=== PATIENT | female | born 1955 | race Asian ===

== ENCOUNTER 2021-12-05 08:00 | Outpatient (CLI) | payer MEDICAID, OTHER ==
[2021-12-05 12:44] LABS: BASOPHILS % (AUTO) 0.4 %; EOSINOPHILS # (AUTO) 0.1 10^3/uL (0.0-0.7); HCT - HEMATOCRIT 40.6 % (37.0-47.0); HGB - HEMOGLOBIN 12.9 g/dL (12.0-16.0); LYMPHOCYTES # (AUTO) 2.2 10^3/uL (1.5-3.5); LYMPHOCYTES % (AUTO) 39.9 %; MEAN CORPUSCULAR HEMOGLOBIN 27.8 pg (27.0-31.0); MEAN CORPUSCULAR HGB CONC 31.8 g/dL (32.0-36.0); MEAN CORPUSCULAR VOLUME 87.5 fL (81.0-99.0); MEAN PLATELET VOLUME 9.5 fL (7.9-10.8); MONOCYTES # (AUTO) 0.4 10^3/uL (0.0-1.0); MONOCYTES % (AUTO) 6.3 %; NEUTROPHILS # (AUTO) 2.9 10^3/uL (1.5-6.6); NEUTROPHILS % (AUTO) 51.2 %; PLT - PLATELET COUNT 426 10^3/uL (130-450); RED BLOOD COUNT 4.64 10^6/uL (4.20-5.40); RED CELL DISTRIBUTION WIDTH 13.9 % (12.0-15.0); WHITE BLOOD COUNT 5.6 x10^3/uL (4.8-10.8)
[2021-12-05 12:50] LABS: BILIRUBIN,URINE NEGATIVE (NEGATIVE); GLUCOSE, URINE (UA) NEGATIVE (NEGATIVE); KETONES,URINE (UA) NEGATIVE (NEGATIVE); LEUKOCYTE ESTERASE, URINE NEGATIVE (NEGATIVE); NITRITE,URINE NEGATIVE (NEGATIVE); OCCULT BLOOD,URINE NEGATIVE (NEGATIVE); PH,URINE 5.5 PH (5.0-7.5); PROTEIN,URINE NEGATIVE (NEGATIVE); UROBILINOGEN,URINE 0.2 (NORMAL) E.U./dL (NORMAL)
[2021-12-05 13:09] LABS: BACTERIA,URINE None Seen /HPF (None Seen); CLARITY,URINE CLEAR (CLEAR); RBC,URINE None Seen /HPF (0-5); SQUAMOUS EPITHELIAL CELL,UR RARE Squamous (<= Few); WBC,URINE 0-3 /HPF (0-5)
[2021-12-05 13:11] LABS: ALBUMIN 3.9 g/dL (3.2-5.5); ALBUMIN/GLOBULIN RATIO 1.2 (1.0-2.2); ALKALINE PHOSPHATASE 72 IU/L (42-121); ALT ALANINE AMINOTRANSFERASE 29 IU/L (10-60); AST ASPARTATE AMINOTRANSFERASE 30 IU/L (10-42); BUN - BLOOD UREA NITROGEN 9 mg/dL (6-20); CALCIUM 9.3 mg/dL (8.5-10.3); CARBON DIOXIDE - CO2 28 mmol/L (21-32); CHLORIDE 100 mmol/L (101-111); CHOLESTEROL 266 mg/dL; CREATININE 0.6 mg/dL (0.4-1.0); GFR - MDRD 101 (>89); GLUCOSE 94 mg/dL (70-100); HDL CHOLESTEROL 66 mg/dL; LDL CHOLESTEROL,CALCULATED 182 mg/dL; POTASSIUM 4.1 mmol/L (3.5-5.0); SODIUM 135 mmol/L (135-145); TOTAL PROTEIN 7.2 g/dL (6.7-8.2); TRIGLYCERIDES 91 mg/dL; VLDL CHOLESTEROL 18 mg/dL
[2021-12-05 13:12] LABS: LDL/HDL RATIO 2.8 (<4.4); THYROID STIMULATING HORMONE 1.52 uIU/mL (0.34-5.60)
[2021-12-05 13:13] LABS: FREE T4 (FREE THYROXINE) 0.93 ng/dL (0.58-1.64)
[2021-12-06 17:20] LABS: ESTIMATED AVERAGE GLUCOSE 128 mg/dL (70-100); HEMOGLOBIN A1c% 6.1 % (4.27-6.07)
== END 2021-12-05 23:59 | disposition home or self-care (01) ==
LOC: LAB.WCP 08:00
PROVIDERS: ATTEND Nurse Practitioner
DX: E78.5 Hyperlipidemia, unspecified (principal); R53.83 Other fatigue; R26.81 Unsteadiness on feet; R73.9 Hyperglycemia, unspecified; R42 Dizziness and giddiness
CPT/HCPCS: 36415; 80053; 80061; 81001; 82607; 83036; 83721; 84439; 84443; 85025; 87086

== ENCOUNTER 2021-12-13 00:14 | Outpatient (CLI) | payer OTHER | END 2021-12-13 00:15 | disposition critical access hospital (66) | LOC: EMS 00:14 | DX: R10.31 Right lower quadrant pain (principal); R11.2 Nausea with vomiting, unspecified; R42 Dizziness and giddiness; R00.0 Tachycardia, unspecified | CPT/HCPCS: A0425; A0427 ==

== ENCOUNTER 2021-12-13 00:31 | Inpatient (IN) | payer OTHER ==
--- NOTE | 2021-12-13 00:54 | ED Physician Documentation ---
PD HPI ABD PAIN - Stated complaint Stated Complaint: RLQ PAIN - Chief complaint Chief Complaint: Abd Pain - History obtained from History obtained from: Patient - History of Present Illness Timing - onset: How many days ago (2) Timing - duration: Days Timing - details: Gradual onset, Constant Pain level now: 8 Quality: Pain Location: RLQ Radiation: Other (radiates to the entire abdomen (from RLQ)) Improved by: Laying still Worsened by: Moving, Palpation Associated symptoms: Nausea, Vomiting. No: Fever, Diarrhea, Constipation Similar symptoms before: Has not had sx before Recently seen: Not recently seen Review of Systems Constitutional: denies: Fever, Chills, Sweats Eyes: reports: Reviewed and negative Ears: reports: Reviewed and negative Nose: reports: Reviewed and negative Throat: reports: Reviewed and negative Cardiac: reports: Reviewed and negative Respiratory: reports: Reviewed and negative GI: reports: Abdominal Pain, Nausea, Vomiting. denies: Abdominal Swelling, Constipation, Diarrhea : denies: Dysuria, Frequency Skin: reports: Reviewed and negative Musculoskeletal: reports: Reviewed and negative Neurologic: reports: Reviewed and negative PD PAST MEDICAL HISTORY - Past Medical History Past Medical History: No - Past Surgical History Past Surgical History: No - Present Medications Home Medications: Ambulatory Orders Medication Instructions Recorded Confirmed Cholecalciferol (Vitamin D3) 5,000 unit PO DAILY 11/06/16 11/06/16 [Vitamin D3] Multivitamin [Multivitamins] 1 each PO DAILY 11/06/16 11/06/16 - Allergies Allergies/Adverse Reactions: Allergies Allergy/AdvReac Type Severity Reaction Status Date / Time No Known Drug Allergies Allergy Verified 11/05/16 14:22 - Living Situation Living Arrangement: reports: At home - Social History Does the pt smoke?: No PD ED PE NORMAL - Vitals Vital signs reviewed: Yes - General General: Alert and oriented X 3, No acute distress (NAD at rest but obvious painful discomfort with abominal exam), Well developed/nourished - HEENT HEENT: Moist mucous membranes - Neck Neck: Supple, no meningeal sign - Respiratory Respiratory: No respiratory distress, Clear bilaterally - Abdomen Abdomen: Soft, Non distended - Derm Derm: Normal color, Warm and dry - Extremities Extremities: No edema PD ED PE EXPANDED - Cardiac Cardiac: Regular Rate, Tachy, Murmur Present (2/6 CHET left second ICS) - Abdomen Abdomen: Tender to palpation (greatest in RLQ but mild TTP other quadrants. Strong rebound tenderness diffusely), Rebound, Other (positive Rovsing's sign) Results - Vitals Vitals: Vital Signs - 24 hr 12/13/21 12/13/21 12/13/21 00:51 01:39 02:35 Temperature 36.9 C Heart Rate 138 H 132 H 138 H Respiratory 18 18 16 Rate Blood Pressure 147/80 H 151/73 H 144/71 H O2 Saturation 97 94 95 12/13/21 12/13/21 12/13/21 03:10 03:53 04:06 Temperature 37.9 C Heart Rate 141 H 141 H Respiratory 16 15 Rate Blood Pressure 141/85 H 138/88 H O2 Saturation 100 98 12/13/21 12/13/21 12/13/21 05:21 05:31 05:59 Temperature 37.6 C Heart Rate 145 H 129 H Respiratory 16 15 14 Rate Blood Pressure 122/79 O2 Saturation 94 96 12/13/21 12/13/21 12/13/21 06:01 06:28 06:30 Temperature Heart Rate 130 H Respiratory 16 Rate Blood Pressure 133/74 H 136/80 H O2 Saturation 97 Oxygen O2 Source Nasal cannula Oxygen Flow Rate 2 - EKG (time done) No standard instances Rate: Rate (enter#) (145), Tachy Rhythm: Sinus tachycardia [place]: Normal Intervals: Normal [place] QRS: Normal Ischemia: Normal ST segments - Labs Labs: Laboratory Tests 12/13/21 12/13/21 12/13/21 01:25 01:29 01:29 WBC 20.5 H RBC 4.73 Hgb 13.2 Hct 39.8 MCV 84.1 MCH 27.9 MCHC 33.2 RDW 13.7 Plt Count 374 MPV 8.5 Neut # (Auto) Not Reportable Lymph # (Auto) Not Reportable [place] # (Auto) Not Reportable Eos # (Auto) Not Reportable Baso # (Auto) Not Reportable Absolute Nucleated RBC Not Reportable Total Counted 100 Band Neuts % (Manual) 13 H Abnorm Lymph % (Manual) 0 Nucleated RBC % Not Reportable Neutrophils # (Manual) 17.4 H Lymphocytes # (Manual) 2.1 Monocytes # (Manual) 1.0 Eosinophils # (Manual) 0.0 Basophils # (Manual) 0.0 Differential Comment MANUAL DIFFERENTIAL Platelet Estimate NORMAL (130-450,000) RBC Morph Micro Appear NORMAL APPEARANCE Sodium 126 L Potassium 3.8 Chloride 90 L Carbon Dioxide 25 Anion Gap 11.0 BUN 6 Creatinine 0.6 Estimated GFR (MDRD) 101 Glucose 113 H Calcium 8.8 Total Bilirubin 2.3 H AST 25 ALT 35 Alkaline Phosphatase 100 Total Protein 7.5 Albumin 3.6 Globulin 3.9 Albumin/Globulin Ratio 0.9 L Lipase 18 L Urine Color YELLOW Urine Clarity CLEAR Urine pH 6.0 Ur Specific [place] 1.015 Urine Protein NEGATIVE Urine Glucose (UA) NEGATIVE Urine Ketones >=80 H Urine Occult Blood TRACE-INTA Urine Nitrite NEGATIVE Urine Bilirubin NEGATIVE Urine Urobilinogen 1 (NORMAL) Ur Leukocyte Esterase NEGATIVE Ur Microscopic Review NOT INDICATED Urine Culture Comments NOT INDICATED Nasal Adenovirus (PCR) Nasal B. parapertussis DNA (PCR) Nasal Coronavir 229E PCR Nasal Coronavir HKU1 PCR Nasal Coronavir NL63 PCR Nasal Coronavir OC43 PCR Nasal Enterovir/Rhinovir PCR Nasal Influenza B PCR Nasal Influenza A PCR Nasal Parainfluen 1 PCR Nasal Parainfluen 2 PCR Nasal Parainfluen 3 PCR Nasal Parainfluen 4 PCR Nasal RSV (PCR) Nasal B.pertussis DNA PCR Nasal C.pneumoniae (PCR) [place] Human Metapneumo PCR Nasal M.pneumoniae (PCR) Nasal SARS-CoV-2 (PCR) 12/13/21 03:40 WBC RBC Hgb Hct MCV MCH MCHC RDW Plt Count MPV Neut # (Auto) Lymph # (Auto) [place] # (Auto) Eos # (Auto) Baso # (Auto) Absolute Nucleated RBC Total Counted Band Neuts % (Manual) Abnorm Lymph % (Manual) Nucleated RBC % Neutrophils # (Manual) Lymphocytes # (Manual) Monocytes # (Manual) Eosinophils # (Manual) Basophils # (Manual) Differential Comment Platelet Estimate RBC Morph Micro Appear Sodium Potassium Chloride Carbon Dioxide Anion Gap BUN Creatinine Estimated GFR (MDRD) Glucose Calcium Total Bilirubin AST ALT Alkaline Phosphatase Total Protein Albumin Globulin Albumin/Globulin Ratio Lipase Urine Color Urine Clarity Urine pH Ur Specific [place] Urine Protein Urine Glucose (UA) Urine Ketones Urine Occult Blood Urine Nitrite Urine Bilirubin Urine Urobilinogen Ur Leukocyte Esterase Ur Microscopic Review Urine Culture Comments Nasal Adenovirus (PCR) NOT DETECTED Nasal B. parapertussis DNA (PCR) NOT DETECTED Nasal Coronavir 229E PCR NOT DETECTED Nasal Coronavir HKU1 PCR NOT DETECTED Nasal Coronavir NL63 PCR NOT DETECTED Nasal Coronavir OC43 PCR NOT DETECTED Nasal Enterovir/Rhinovir PCR NOT DETECTED Nasal Influenza B PCR NOT DETECTED Nasal Influenza A PCR NOT DETECTED Nasal Parainfluen 1 PCR NOT DETECTED Nasal Parainfluen 2 PCR NOT DETECTED Nasal Parainfluen 3 PCR NOT DETECTED Nasal Parainfluen 4 PCR NOT DETECTED Nasal RSV (PCR) NOT DETECTED Nasal B.pertussis DNA PCR NOT DETECTED Nasal C.pneumoniae (PCR) NOT DETECTED [place] Human Metapneumo PCR NOT DETECTED Nasal M.pneumoniae (PCR) NOT DETECTED Nasal SARS-CoV-2 (PCR) NOT DETECTED - Rads (name of study) CT A/P with IV contrast Radiology: Prelim report reviewed, See rad report PD MEDICAL DECISION MAKING - ED course Complexity details: reviewed results, re-evaluated patient, considered differential, d/w patient ED course: H+P suggestive of appendicits with rebound tenderness, CT demonstrates "perforated acute appendicitis with extensive inflammation at the base of the cecum. no abscess" (per radiologist's interpretation). D/W Dr. Mejia, will take patient to OR in AM. Patient remained stable during ED stay although significant tachycardia throughout, even with IV fluids and good pain control. Tmax 100.2 which improved to 99.6 with [place] acetaminophen. Departure - Departure Disposition: ED Transfer to [facility] Clinical Impression: Appendicitis Condition: Stable Discharge Date/Time: 12/13/21 08:24
[2021-12-13] MEDS ORDERED: HYDROmorphone 1 MG/ML CARPUJECT IVP STA ×3 (01:15→03:35)
[2021-12-13] MEDS ORDERED: ONDANSETRON 4 MG/2 ML VIAL IVP STA (01:15)
[2021-12-13] MEDS ORDERED: SODIUM CHLORIDE 0.9% 1,000 ML IV STA ×3 (01:15→03:19)
[2021-12-13] MEDS ORDERED: iohexoL-300 100 ML VIAL ONE (01:30)
[2021-12-13 01:35] LABS: BASOPHILS % (AUTO) 0.3 %; EOSINOPHILS % (AUTO) 0.2 %; HCT - HEMATOCRIT 39.8 % (37.0-47.0); HGB - HEMOGLOBIN 13.2 g/dL (12.0-16.0); LYMPHOCYTES % (AUTO) 5.1 %; MEAN CORPUSCULAR HEMOGLOBIN 27.9 pg (27.0-31.0); MEAN CORPUSCULAR HGB CONC 33.2 g/dL (32.0-36.0); MEAN CORPUSCULAR VOLUME 84.1 fL (81.0-99.0); MEAN PLATELET VOLUME 8.5 fL (7.9-10.8); MONOCYTES % (AUTO) 6.1 %; NEUTROPHILS % (AUTO) 87.4 %; PLT - PLATELET COUNT 374 10^3/uL (130-450); RED BLOOD COUNT 4.73 10^6/uL (4.20-5.40); RED CELL DISTRIBUTION WIDTH 13.7 % (12.0-15.0); WHITE BLOOD COUNT 20.5 x10^3/uL (4.8-10.8)
[2021-12-13 01:37] LABS: ABNORMAL LYMPHS % (MANUAL) 0 %
[2021-12-13 01:41] LABS: BILIRUBIN,URINE NEGATIVE (NEGATIVE); GLUCOSE, URINE (UA) NEGATIVE (NEGATIVE); KETONES,URINE (UA) >=80 mg/dL (NEGATIVE); LEUKOCYTE ESTERASE, URINE NEGATIVE (NEGATIVE); NITRITE,URINE NEGATIVE (NEGATIVE); OCCULT BLOOD,URINE TRACE-INTA (NEGATIVE); PROTEIN,URINE NEGATIVE (NEGATIVE); UROBILINOGEN,URINE 1 (NORMAL) E.U./dL (NORMAL)
[2021-12-13 01:44] LABS: CLARITY,URINE CLEAR (CLEAR)
[2021-12-13 01:46] LABS: ALBUMIN 3.6 g/dL (3.2-5.5); ALBUMIN/GLOBULIN RATIO 0.9 (1.0-2.2); BILIRUBIN,TOTAL 2.3 mg/dL (0.2-1.0); CALCIUM 8.8 mg/dL (8.5-10.3); CREATININE 0.6 mg/dL (0.4-1.0); POTASSIUM 3.8 mmol/L (3.5-5.0); TOTAL PROTEIN 7.5 g/dL (6.7-8.2)
[2021-12-13] MEDS ORDERED: iohexoL-300 100 ML VIAL IVP ONE (02:19)
[2021-12-13 02:23] LABS: BAND NEUTROPHILS % (MANUAL) 13 %; DIFFERENTIAL COMMENT MANUAL DIFFERENTIAL; LYMPHOCYTES # (MANUAL) 2.1 10^3/uL (1.5-3.5); LYMPHOCYTES % (MANUAL) 10 %; NEUTROPHILS # (MANUAL) 17.4 10^3/uL (1.5-6.6); PLATELET ESTIMATE, MANUAL NORMAL (130-450,000) (NORMAL); RBC MORPHOLOGY (MULTIPLE) NORMAL APPEARANCE (NORMAL)
[2021-12-13] MEDS ORDERED: PIPERACILLIN/TAZOBACTAM 4.5 GM in SODIUM CHLORIDE 0.9% MINIBAG 100 ML IV STA (02:32)
[2021-12-13] MEDS ORDERED: ACETAMINOPHEN 650 MG SUPP PR STA (03:19)
[2021-12-13 04:56] LABS: B. PARAPERTUSSIS- RESP PCR PAN NOT DETECTED; B. PERTUSSIS- RESP PCR PANEL NOT DETECTED; C. PNEUMONIAE- RESP PCR PANEL NOT DETECTED; CORONAVIRUS 229E-RESP PCR NOT DETECTED; CORONAVIRUS HKU1-RESP PCR NOT DETECTED; CORONAVIRUS NL63-RESP PCR NOT DETECTED; CORONAVIRUS OC43-RESP PCR NOT DETECTED; HUMAN METAPNEUMOVIRUS NOT DETECTED; INFLUENZA A- RESP PCR PANEL NOT DETECTED; INFLUENZA B - RESP PCR PANEL NOT DETECTED; M. PNEUMONIAE- RESP PCR PANEL NOT DETECTED; PARAINFLUENZA VIRUS 1 NOT DETECTED; PARAINFLUENZA VIRUS 2 NOT DETECTED; PARAINFLUENZA VIRUS 3 NOT DETECTED; PARAINFLUENZA VIRUS 4 NOT DETECTED; RHINOVIRUS/ENTEROVIRUS NOT DETECTED; RSV- RESP PCR PANEL NOT DETECTED; SARS-CoV-2 -RESP PCR PANEL NOT DETECTED
[2021-12-13] MEDS ORDERED: BUPIVACAINE 0.25% PF 30 ML VIAL ONE (07:43)
[2021-12-13] MEDS ORDERED: LIDOCAINE 2%-EPI 1:100000 20 ML MDV ONE (07:43)
--- NOTE | 2021-12-13 08:00 | ANESTHESIA ---
Pre-Anesthesia VS, & Labs - Diagnosis ruptured appendix - Procedure Lap appy Vital Signs: Temp Pulse Resp BP Pulse Ox 37.6 C 130 H 16 136/80 H 97 12/13/21 05:21 12/13/21 06:30 12/13/21 06:28 12/13/21 06:30 12/13/21 06:30 Height: 5 ft 6 in Weight (kg): 74.344 kg Body Mass Index: 26.4 BMI Classification: Overweight - NPO >8 hours - Is Patient ?: No - Lab Results Current Lab Results: Laboratory Tests 12/13/21 01:29: Sodium 126 L, Potassium 3.8, Chloride 90 L, Carbon Dioxide 25, Anion Gap 11.0, BUN 6, Creatinine 0.6, Estimated GFR (MDRD) 101, Glucose 113 H, Calcium 8.8, Total Bilirubin 2.3 H, AST 25, ALT 35, Alkaline Phosphatase 100, Total Protein 7.5, Albumin 3.6, Globulin 3.9, Albumin/Globulin Ratio 0.9 L, Lipase 18 L 12/13/21 01:29: WBC 20.5 H, RBC 4.73, Hgb 13.2, Hct 39.8, MCV 84.1, MCH 27.9, MCHC 33.2, RDW 13.7, Plt Count 374, MPV 8.5, Neut # (Auto) Not Reportable, Lymph # (Auto) Not Reportable, [place] # (Auto) Not Reportable, Eos # (Auto) Not Reportable, Baso # (Auto) Not Reportable, Absolute Nucleated RBC Not Reportable, Total Counted 100, Band Neuts % (Manual) 13 H, Abnorm Lymph % (Manual) 0, Nucleated RBC % Not Reportable, Neutrophils # (Manual) 17.4 H, Lymphocytes # (Manual) 2.1, Monocytes # (Manual) 1.0, Eosinophils # (Manual) 0.0, Basophils # (Manual) 0.0, Differential Comment MANUAL DIFFERENTIAL, Platelet Estimate NORMAL (130-450,000), RBC Morph Micro Appear NORMAL APPEARANCE Lab results reviewed: Yes Fish Bones: 12/13/21 01:29 12/13/21 01:29 Home Medications and Allergies Active Medications Sodium Chloride (Normal Saline 0.9%) 1,000 mls @ 150 mls/hr IV .Q6H40M STA Stop: 12/13/21 09:09 Last Admin: 12/13/21 02:43 Dose: 150 mls/hr Cholecalciferol (Vitamin D3) [Vitamin D3] 5,000 unit PO DAILY 11/06/16 Multivitamin [Multivitamins] 1 each PO DAILY 11/06/16 Allergies/Adverse Reactions: Allergies Allergy/AdvReac Type Severity Reaction Status Date / Time No Known Drug Allergies Allergy Verified 11/05/16 14:22 Anes History & Medical History - Anesthetic History Anesthesia Complications: reports: No previous complications Family history of Anesthesia Complications: Denies Family history of Malignant Hyperthermia: Denies - Medical History Cardiovascular: reports: None Pulmonary: reports: None Gastrointestinal: reports: None Urinary: reports: None Neuro: reports: None Musculoskeletal: reports: None Endocrine/Autoimmune: reports: None Blood Disorders: reports: None Skin: reports: None Smoking Status: Never smoker - Surgical History Eyes Ears Nose Throat (EENT): reports: Tonsil/Adenoidectomy Exam General: Alert, Oriented x3, Cooperative, No acute distress Dental: WNL Mouth Openin Fingerbreadth Neck Mobility: Normal Mallampati classification: II Plan Anesthesia Type: General Consent for Procedure(s) Verified and Reviewed: Yes Code Status: Attempt Resuscitation ASA classification: 3-Severe systemic disease Is this case an emergency?: No
--- NOTE | 2021-12-13 08:06 | CT Report ---
PROCEDURE: Abdomen/Pelvis W INDICATIONS: RLQ pain CONTRAST: IV CONTRAST: Isovue 300 ml: 100 PO CONTRAST: *NO PO CONTRAST TECHNIQUE: After the administration of intravenous contrast, 5 mm thick sections acquired from the diaphragms to the symphysis. 5 mm thick coronal and sagittal reformats were acquired. For radiation dose reducti on, the following was used: automated exposure control, adjustment of mA and/or kV according to niall ent size. COMPARISON: None. FINDINGS: Image quality: Excellent. ABDOMEN: Lung bases: There is atelectasis medially in the lung bases associated with a large hiatal hernia. He art size is normal. Solid organs: Evaluation of the liver demonstrates no focal hepatic lesions. Gallbladder appears with in normal limits without calcified gallstones. Biliary system is non dilated. The spleen is normal i n size. Pancreas enhances normally without peripancreatic fat stranding or fluid collections. No adr enal nodules. Kidneys demonstrate no hydronephrosis. Peritoneum and bowel: Small bowel loops demonstrate normal wall thickness and caliber. The appendix is enlarged and thick-walled with extensive periappendiceal fat stranding and a small amount of free fluid in the right lower quadrant and right paracolic gutter. There is a small amount of free air in the right lower quadrant. Findings are consistent with perforated acute appendicitis. No discrete abs cess identified. There is mild colonic wall thickening in the cecum likely representing reactive connolly ges. There is colonic diverticulosis without acute diverticulitis. Nodes and vessels: No retroperitoneal or mesenteric adenopathy by size criteria. Aorta and inferior vena cava are normal in size. Miscellaneous: No ventral hernias. PELVIS: Genitourinary: Bladder wall thickness is normal. Miscellaneous: No inguinal hernias or adenopathy. Bones: No suspicious bony lesions. No vertebral body compression fractures. IMPRESSION: 1. Findings consistent with acute perforated diverticulitis without evidence of an abscess. Findings reported to Dr. Blood on 12/13/21 at 2:52 AM by [facility]. 2. Large hiatal hernia. Reviewed by: Mina Mohr MD on 12/13/2021 8:05 AM [facility] Approved by: Mina Mohr MD on 12/13/2021 8:05 AM [facility] Station ID: [id number]
[2021-12-13] MEDS ORDERED: ONDANSETRON 4 MG/2 ML VIAL IVP PRN ×3 (08:12→09:36)
[2021-12-13] MEDS ORDERED: ePHEDrine 50 MG/ML VIAL IVP PRN ×2 (08:12→09:02)
[2021-12-13] MEDS ORDERED: fentaNYL 100 MCG/2 ML VIAL IVP PRN ×2 (08:12→09:02)
[2021-12-13] MEDS ORDERED: HYDROmorphone 0.5 MG/0.5 ML SYRINGE IVP PRN ×2 (08:12→09:02)
[2021-12-13] MEDS ORDERED: MORPHINE 2 MG/ML CARPUJECT IVP PRN ×2 (08:12→09:02)
[2021-12-13] MEDS ORDERED: NALOXONE 0.4 MG/ML VIAL IVP PRN ×2 (08:12→08:57)
[2021-12-13] MEDS ORDERED: ATROPINE ABBOJECT 1 MG/10 ML SYRINGE IVP PRN ×2 (08:12→09:02)
[2021-12-13] MEDS ORDERED: METOCLOPRAMIDE 10 MG/2 ML VIAL IVP PRN ×2 (08:12→08:57)
[2021-12-13] MEDS ORDERED: DEXAMETHASONE 4 MG/ML VIAL ONE (08:17)
[2021-12-13] MEDS ORDERED: LIDOCAINE-MPF 2% 5 ML VIAL ONE (08:17)
[2021-12-13] MEDS ORDERED: KETOROLAC 30 MG/ML VIAL ONE (08:17)
[2021-12-13] MEDS ORDERED: ROCURONIUM 50 MG/5 ML VIAL ONE (08:17)
[2021-12-13] MEDS ORDERED: PROPOFOL 200 MG/20 ML VIAL IVP ONE (08:17)
[2021-12-13] MEDS ORDERED: fentaNYL 100 MCG/2 ML VIAL ONE (08:17)
[2021-12-13] MEDS ORDERED: ONDANSETRON 4 MG/2 ML VIAL ONE (08:17)
[2021-12-13] MEDS ORDERED: PIPERACILLIN/TAZOBACTAM 3.375 GM in SODIUM CHLORIDE 0.9% MINIBAG 100 ML IV ONE (08:23)
--- NOTE | 2021-12-13 08:29 | HISTORY & PHYSICAL EXAMINATION ---
HPI - Admitted From Admitted from: ED - History Obtained From History obtained from: Patient Exam limitations: No limitations - History of Present Illness Pain/Problem Location Description: Right lower quadrant pain Severity at the worst: reports: Severe Pain Quality: reports: Sharp, Aching, Throbbing Context-Pain started w/: reports: Exertion Timing: reports: Abrupt onset Duration: reports: Days: (2) Improved with: reports: Nothing Worsened by: reports: Exertion, Inspiration, Movement, Palpation HPI Comment/Other: Very pleasant and active 66-year-old lady presented to the emergency room via EMS after 2 days of right lower quadrant pain. This was accompanied by dizziness and generalized malaise and weakness. She reports that the pain started abruptly while she was riding her bicycle.She is never had a similar episode. She takes no medications and has no chronic illnesses. PMH/PSH - Past Medical History Cardiovascular: positive: None Respiratory: positive: None Neuro: positive: None Endocrine/Autoimmune: positive: None GI: positive: None STRATEGIC ACCOUNT EXECUTIVE: positive: None : positive: None HEENT: positive: None Psych: positive: None Musculoskeletal: positive: None Derm: positive: None MRSA Hx?: No - Past Surgical History HEENT: positive: Tonsil/Adenoidectomy Social & Family Hx - Living Situation Living Arrangement: At home - Social History Does the pt smoke?: No Smoking Status: Never smoker Does the pt drink ETOH?: No Does the pt have substance abuse?: No - POLST Patient has POLST: No Meds/Allgy - Home Medications Home Medications: Ambulatory Orders Medication Instructions Recorded Confirmed Cholecalciferol (Vitamin D3) 5,000 unit PO DAILY 11/06/16 11/06/16 [Vitamin D3] Multivitamin [Multivitamins] 1 each PO DAILY 11/06/16 11/06/16 - Allergies Allergies/Adverse Reactions: Allergies Allergy/AdvReac Type Severity Reaction Status Date / Time No Known Drug Allergies Allergy Verified 11/05/16 14:22 Review of Systems - Constitutional Constitutional: reports: Fatigue, Malaise, Weakness - Gastrointestinal Gastrointestinal: reports: Abdominal pain, Nausea - Neurological Neurological: reports: Dizziness Exam - Vital Signs Reviewed Vital Signs: Yes Vital Signs: Vital Signs x48h Temp Pulse Resp BP Pulse Ox 12/13/21 06:30 130 H 136/80 H 97 01/27/22 06:28 16 12/13/21 06:01 133/74 H 12/13/21 05:59 129 H 14 96 12/13/21 05:31 145 H 15 122/79 94 12/13/21 05:21 37.6 C 16 12/13/21 04:06 141 H 15 138/88 H 98 12/13/21 03:53 141 H 16 141/85 H 100 12/13/21 03:10 37.9 C 12/13/21 02:35 138 H 16 144/71 H 95 12/13/21 01:39 132 H 18 151/73 H 94 12/13/21 00:51 36.9 C 138 H 18 147/80 H 97 - Physical Exam General Appearance: positive: Alert, Mild distress Eyes Bilateral: positive: Normal inspection, PERRL, EOMI ENT: positive: ENT inspection nml, Pharynx nml Neck: positive: Nml inspection, Thyroid nml, No JVD Respiratory: positive: Chest non-tender, No respiratory distress, Breath sounds nml Cardiovascular: positive: Regular rate & rhythm, No murmur Peripheral Pulses: positive: 1+ Abdomen: positive: Tenderness, Guarding, Rebound, Other (Hypoactive bowel sounds) Back: positive: Nml inspection Skin: positive: Color nml, No rash Extremities: positive: Non-tender, Full ROM, Nml appearance, No pedal edema Neurologic/Psychiatric: positive: Oriented x3 Results - Lab Results Fish Bones: 12/13/21 01:29 12/13/21 01:29 Other Lab Results: Lab Results x24hrs 12/13/21 12/13/21 12/13/21 Range/Units 03:40 01:29 01:29 WBC 20.5 H (4.8-10.8) x10^3/uL RBC 4.73 (4.20-5.40) 10^6/uL Hgb 13.2 (12.0-16.0) g/dL Hct 39.8 (37.0-47.0) % MCV 84.1 (81.0-99.0) fL MCH 27.9 (27.0-31.0) pg MCHC 33.2 (32.0-36.0) g/dL RDW 13.7 (12.0-15.0) % Plt Count 374 (130-450) 10^3/uL MPV 8.5 (7.9-10.8) fL Neut # (Auto) Not Reportable Lymph # (Auto) Not Reportable [place] # (Auto) Not Reportable Eos # (Auto) Not Reportable Baso # (Auto) Not Reportable Absolute Nucleated RBC Not Reportable Total Counted 100 Band Neuts % (Manual) 13 H (0 - 10) % Abnorm Lymph % (Manual) 0 % Nucleated RBC % Not Reportable Neutrophils # (Manual) 17.4 H (1.5-6.6) 10^3/uL Lymphocytes # (Manual) 2.1 (1.5-3.5) 10^3/uL Monocytes # (Manual) 1.0 (0.0-1.0) 10^3/uL Eosinophils # (Manual) 0.0 (0-0.7) 10^3/uL Basophils # (Manual) 0.0 (0-0.1) 10^3/uL Differential Comment MANUAL DIFFERENTIAL Platelet Estimate NORMAL (130-450,000) (NORMAL) RBC Morph Micro Appear NORMAL APPEARANCE (NORMAL) Sodium 126 L (135-145) mmol/L Potassium 3.8 (3.5-5.0) mmol/L Chloride 90 L (101-111) mmol/L Carbon Dioxide 25 (21-32) mmol/L Anion Gap 11.0 (6-13) BUN 6 (6-20) mg/dL Creatinine 0.6 (0.4-1.0) mg/dL Estimated GFR (MDRD) 101 (>89) Glucose 113 H (70-100) mg/dL Calcium 8.8 (8.5-10.3) mg/dL Total Bilirubin 2.3 H (0.2-1.0) mg/dL AST 25 (10-42) IU/L ALT 35 (10-60) IU/L Alkaline Phosphatase 100 (42-121) IU/L Total Protein 7.5 (6.7-8.2) g/dL Albumin 3.6 (3.2-5.5) g/dL Globulin 3.9 (2.1-4.2) g/dL Albumin/Globulin Ratio 0.9 L (1.0-2.2) Lipase 18 L (22-51) U/L Urine Color Urine Clarity (CLEAR) Urine pH (5.0-7.5) PH Ur Specific [place] (1.002-1.030) Urine Protein (NEGATIVE) mg/dL Urine Glucose (UA) (NEGATIVE) mg/dL Urine Ketones (NEGATIVE) mg/dL Urine Occult Blood (NEGATIVE) Urine Nitrite (NEGATIVE) Urine Bilirubin (NEGATIVE) Urine Urobilinogen (NORMAL) E.U./dL Ur Leukocyte Esterase (NEGATIVE) Ur Microscopic Review Urine Culture Comments Nasal Adenovirus (PCR) NOT DETECTED Nasal B. parapertussis DNA (PCR) NOT DETECTED Nasal Coronavir 229E PCR NOT DETECTED Nasal Coronavir HKU1 PCR NOT DETECTED Nasal Coronavir NL63 PCR NOT DETECTED Nasal Coronavir OC43 PCR NOT DETECTED Nasal Enterovir/Rhinovir PCR NOT DETECTED Nasal Influenza B PCR NOT DETECTED Nasal Influenza A PCR NOT DETECTED Nasal Parainfluen 1 PCR NOT DETECTED Nasal Parainfluen 2 PCR NOT DETECTED Nasal Parainfluen 3 PCR NOT DETECTED Nasal Parainfluen 4 PCR NOT DETECTED Nasal RSV (PCR) NOT DETECTED Nasal B.pertussis DNA PCR NOT DETECTED Nasal C.pneumoniae (PCR) NOT DETECTED [place] Human Metapneumo PCR NOT DETECTED Nasal M.pneumoniae (PCR) NOT DETECTED Nasal SARS-CoV-2 (PCR) NOT DETECTED 12/13/21 Range/Units 01:25 WBC (4.8-10.8) x10^3/uL RBC (4.20-5.40) 10^6/uL Hgb (12.0-16.0) g/dL Hct (37.0-47.0) % MCV (81.0-99.0) fL MCH (27.0-31.0) pg MCHC (32.0-36.0) g/dL RDW (12.0-15.0) % Plt Count (130-450) 10^3/uL MPV (7.9-10.8) fL Neut # (Auto) Lymph # (Auto) [place] # (Auto) Eos # (Auto) Baso # (Auto) Absolute Nucleated RBC Total Counted Band Neuts % (Manual) (0 - 10) % Abnorm Lymph % (Manual) % Nucleated RBC % Neutrophils # (Manual) (1.5-6.6) 10^3/uL Lymphocytes # (Manual) (1.5-3.5) 10^3/uL Monocytes # (Manual) (0.0-1.0) 10^3/uL Eosinophils # (Manual) (0-0.7) 10^3/uL Basophils # (Manual) (0-0.1) 10^3/uL Differential Comment Platelet Estimate (NORMAL) RBC Morph Micro Appear (NORMAL) Sodium (135-145) mmol/L Potassium (3.5-5.0) mmol/L Chloride (101-111) mmol/L Carbon Dioxide (21-32) mmol/L Anion Gap (6-13) BUN (6-20) mg/dL Creatinine (0.4-1.0) mg/dL Estimated GFR (MDRD) (>89) Glucose (70-100) mg/dL Calcium (8.5-10.3) mg/dL Total Bilirubin (0.2-1.0) mg/dL AST (10-42) IU/L ALT (10-60) IU/L Alkaline Phosphatase (42-121) IU/L Total Protein (6.7-8.2) g/dL Albumin (3.2-5.5) g/dL Globulin (2.1-4.2) g/dL Albumin/Globulin Ratio (1.0-2.2) Lipase (22-51) U/L Urine Color YELLOW Urine Clarity CLEAR (CLEAR) Urine pH 6.0 (5.0-7.5) PH Ur Specific [place] 1.015 (1.002-1.030) Urine Protein NEGATIVE (NEGATIVE) mg/dL Urine Glucose (UA) NEGATIVE (NEGATIVE) mg/dL Urine Ketones >=80 H (NEGATIVE) mg/dL Urine Occult Blood TRACE-INTA (NEGATIVE) Urine Nitrite NEGATIVE (NEGATIVE) Urine Bilirubin NEGATIVE (NEGATIVE) Urine Urobilinogen 1 (NORMAL) (NORMAL) E.U./dL Ur Leukocyte Esterase NEGATIVE (NEGATIVE) Ur Microscopic Review NOT INDICATED Urine Culture Comments NOT INDICATED Nasal Adenovirus (PCR) Nasal B. parapertussis DNA (PCR) Nasal Coronavir 229E PCR Nasal Coronavir HKU1 PCR Nasal Coronavir NL63 PCR Nasal Coronavir OC43 PCR Nasal Enterovir/Rhinovir PCR Nasal Influenza B PCR Nasal Influenza A PCR Nasal Parainfluen 1 PCR Nasal Parainfluen 2 PCR Nasal Parainfluen 3 PCR Nasal Parainfluen 4 PCR Nasal RSV (PCR) Nasal B.pertussis DNA PCR Nasal C.pneumoniae (PCR) [place] Human Metapneumo PCR Nasal M.pneumoniae (PCR) Nasal SARS-CoV-2 (PCR) - Diagnostic Imaging Results Diagnostic Imaging Results Comments: CT is consistent with perforated appendicitis with associated right lower quadrant phlegmon and free air Impression/Plan - Problem List Problem List: Perforated appendicitis with right lower quadrant phlegmon. I have recommended Laparoscopy with appendectomy and indicated procedures including peritoneal drain placement. We have discussed the risks, benefits, and alternatives and the patient has expressed verbal and written consent to proceed.
[2021-12-13] MEDS ORDERED: ACETAMINOPHEN 1,000 MG/100 ML 100 ML IV ONE (08:47)
[2021-12-13] MEDS ORDERED: BUPIVACAINE 0.25% PF 30 ML VIAL SUBQ ONE (09:00)
[2021-12-13] MEDS ORDERED: LACTATED RINGERS 1,000 ML IV SCH ×2 (09:00)
[2021-12-13] MEDS ORDERED: LIDOCAINE 2%-EPI 1:100000 20 ML MDV SUBQ ONE (09:00)
[2021-12-13] MEDS ORDERED: SUGAMMADEX 200 MG/2 ML VIAL IVP ONE (09:17)
[2021-12-13] MEDS ORDERED: LACTATED RINGERS 1,000 ML IV ONE (09:27)
--- NOTE | 2021-12-13 09:35 | ANESTHESIA POST OP EVALUATION ---
Anesthesia Post Eval - Post Anesthesia Eval Vitals: Last Vital Signs Temp 37.6 C 12/13/21 05:21 Pulse 130 H 12/13/21 06:30 Resp 16 12/13/21 06:28 BP 136/80 H 12/13/21 06:30 Pulse Ox 97 12/13/21 06:30 CV Function Including HR & BP: Stable Pain Control: Satisfactory Nausea & Vomiting: Negative Mental Status: Baseline Respiratory Status: Airway Patent Hydration Status: Satisfactory Anesthesia Complications: None
[2021-12-13] MEDS ORDERED: HYDROmorphone 1 MG/ML CARPUJECT IVP PRN (09:36)
--- NOTE | 2021-12-13 09:36 | OPERATIVE REPORT ---
Operative Report - General Admit Date: 12/13/21 Procedure Date: 12/13/21 Planned Procedure: Laparoscopy with appendectomy and drain placement Pre-Op Diagnosis: Perforated appendicitis with right lower quadrant phlegmon Procedure Performed: Laparoscopic appendectomy with evacuation of abscess, drain placement, and umbilical hernia repair Post Op Diagnosis: Perforated appendicitis with abscess and umbilical hernia - Procedure Note Primary Surgeon: Jackie Anesthesia Provider: BRADY Leung Anesthesia Technique: General ET tube, Local Pathology: Appendix to pathology in formalin Estimated Blood Loss (mL): 15 Drain/Tube Type: Félix drain (19 Yi in the pelvis and right paracolic gutter) Findings: Perforated appendicitis with patricia peritonitis and right lower quadrant abscess Complications: None apparent - Other Other Information/Narrative: After obtaining informed consent, the patient is brought to the operating room and placed in the supine position on the operating table. Following successful induction of general endotracheal anesthesia, appropriate padding of all bony prominences, and placement of appropriate monitors, the abdomen was prepped and draped in the standard surgical fashion. A timeout was held per scope protocol. All elements of the surgical safety checklist were followed before, during, and after the procedure. Following infiltration with local anesthetic to create a field block, an incision was created inferior to the umbilicus and carried down through the skin and subcutaneous tissue to reveal the fascia below. A 1 cm umbilical hernia was noted.It contained peritoneum and omentum. 2-0 Vicryl retention sutures were placed on either side of the midline and the abdomen was entered under direct vision using a 15 blade scalpel. A 10 mm blunt Chris balloon trocar was placed in the abdominal cavity and it was insufflated to 15 mmHg pressure. The patient was placed in Trendelenburg position with the left side rotated toward the floor. The camera was placed in the abdominal cavity and we immediately visualized the cecum in the right lower quadrant. There was a large amount of purulent material throughout the abdomen but concentrated in the right lower quadrant extending from the pelvis to the gallbladder fossa.The omentum was carefully peeled from the surface of this phlegmon revealing multiple abscess collections. The cecum was rotated medially revealing a patricia purulent fluid collection with a perforated appendix located centrally. The appendix was grasped and elevated revealing its attachment to the cecum. A window was created in the mesoappendix at this location. A laparoscopic stapling device was used to ligate the appendix and liberated from its attachment to the cecum. An additional load of the device were used to divide its mesentery.The appendix was placed in an Endo Catch bag and removed via the umbilical port with a camera in the epigastric position. The purulent material was cultured. The camera was replaced in the operative site examined. It was irrigated with 2 L of warm saline solution and aspirated free of all fluid and particulate matter. A 19 Yi Félix drain was placed through the suprapubic port and positioned in the pelvis extending into the right paracolic gutter and region of the abscess. The table was flattened and the abdomen evaluated once again. The trochars were removed under direct vision and abdomen was desufflated. The umbilical incision along with the hernia was closed with interrupted Vicryl suture and Skin clips were placed in the skin. Quarter inch plain new gauze was used to pack the umbilical incision to prevent abscess collection. Dry dressings were applied.All sponge, needles, and instrument counts were correct at the conclusion of the case. The patient was allowed to wake from anesthesia without difficulty and taken to the postanesthesia care unit in good condition.
[2021-12-13] MEDS: LACTATED RINGERS 1,000 ML IV SCH ×2 (11:04→21:09)
[2021-12-13] MEDS: PIPERACILLIN/TAZOBACTAM 3.375 GM in SODIUM CHLORIDE 0.9% MINIBAG 100 ML IV SCH ×3 (11:04→23:40)
[2021-12-13] MEDS: ACETAMINOPHEN 1,000 MG/100 ML 100 ML IV SCH ×3 (11:06→21:05)
[2021-12-13] MEDS: KETOROLAC 15 MG/ML VIAL IVP PRN (14:42)
[2021-12-13] MEDS: SODIUM CHLORIDE FLUSH 0.9% 10 ML SYRINGE IVP PRN (14:43)
[2021-12-13] MEDS: SODIUM CHLORIDE FLUSH 0.9% 10 ML SYRINGE IVP SCH ×2 (16:46→23:39)
[2021-12-14] MEDS: ACETAMINOPHEN 1,000 MG/100 ML 100 ML IV SCH ×3 (04:08→19:34)
[2021-12-14] MEDS: PIPERACILLIN/TAZOBACTAM 3.375 GM in SODIUM CHLORIDE 0.9% MINIBAG 100 ML IV SCH ×3 (05:59→19:34)
[2021-12-14] MEDS: PANTOPRAZOLE 40 MG VIAL IVP SCH (05:59)
[2021-12-14 07:29] LABS: CALCIUM 7.9 mg/dL (8.5-10.3); CREATININE 0.6 mg/dL (0.4-1.0); POTASSIUM 2.9 mmol/L (3.5-5.0)
[2021-12-14 07:54] LABS: BASOPHILS % (AUTO) 0.3 %; EOSINOPHILS % (AUTO) 1.4 %; HCT - HEMATOCRIT 32.5 % (37.0-47.0); HGB - HEMOGLOBIN 10.6 g/dL (12.0-16.0); LYMPHOCYTES % (AUTO) 8.4 %; MEAN CORPUSCULAR HEMOGLOBIN 27.7 pg (27.0-31.0); MEAN CORPUSCULAR HGB CONC 32.6 g/dL (32.0-36.0); MEAN CORPUSCULAR VOLUME 85.1 fL (81.0-99.0); MEAN PLATELET VOLUME 9.3 fL (7.9-10.8); MONOCYTES % (AUTO) 5.2 %; NEUTROPHILS % (AUTO) 84.3 %; PLT - PLATELET COUNT 337 10^3/uL (130-450); RED BLOOD COUNT 3.82 10^6/uL (4.20-5.40); RED CELL DISTRIBUTION WIDTH 14.2 % (12.0-15.0); SLIDE REVIEW? Indicated; WHITE BLOOD COUNT 11.6 x10^3/uL (4.8-10.8)
[2021-12-14 07:55] LABS: ABNORMAL LYMPHS % (MANUAL) 0 %
[2021-12-14 08:53] LABS: BAND NEUTROPHILS % (MANUAL) 13 %; LYMPHOCYTES # (MANUAL) 1.7 10^3/uL (1.5-3.5); LYMPHOCYTES % (MANUAL) 15 %; METAMYELOCYTES % (MANUAL) 1 %; MONOCYTES # (MANUAL) 0.5 10^3/uL (0.0-1.0); NEUTROPHILS # (MANUAL) 9.3 10^3/uL (1.5-6.6)
[2021-12-14 08:56] LABS: DIFFERENTIAL COMMENT MANUAL DIFFERENTIAL; PLATELET ESTIMATE, MANUAL NORMAL (130-450,000) (NORMAL); PLATELET MORPHOLOGY NORMAL APPEARANCE (NORMAL); RBC MORPHOLOGY (MULTIPLE) NORMAL APPEARANCE (NORMAL); WBC MORPHOLOGY (MULTIPLE) NORMAL APPEARANCE (NORMAL)
[2021-12-14] MEDS: ENOXAPARIN 40 MG/0.4 ML SYRINGE SUBQ SCH (09:06)
--- NOTE | 2021-12-14 11:25 | PROVIDER PROGRESS NOTE ---
Subjective - General Admit Date: 12/13/21 Procedure Date: 12/13/21 Post Op Days: 1 Procedure Performed: Lap appy - Review of Systems General: positive: Fatigue HEENT: positive: No symptoms Pulmonary: positive: No symptoms Cardiovascular: positive: No symptoms Gastrointestinal: positive: Abdominal pain. negative: Nausea, Vomiting Genitourinary: positive: No symptoms Musculoskeletal: positive: No symptoms All Other Systems: positive: Reviewed and negative - Other Other Information/Narrative: Feeling much better today. Reports pain is achy but not severe. No appetite. Has had both flatus and bowel movement. Objective - Patient Data Vital Signs: Vital Signs x48h Temp Pulse Resp BP Pulse Ox 12/14/21 08:51 36.8 C 105 H 16 174/79 H 96 Weight: Weight 12/12/21 12/13/21 12/14/21 23:59 23:59 23:59 Weight (kg) 80.5 kg Intake & Output: Intake and Output Totals x24h 12/12/21 12/13/21 12/14/21 23:59 23:59 23:59 Intake Total 5656.667 850 Output Total 2065 510 Balance 3591.667 340 - Lab Results Lab Results: 12/14/21 06:55 12/14/21 06:55 Other Lab Results: Lab Results x24hrs 12/14/21 12/14/21 Range/Units 06:55 06:55 WBC 11.6 H (4.8-10.8) x10^3/uL RBC 3.82 L (4.20-5.40) 10^6/uL Hgb 10.6 L (12.0-16.0) g/dL Hct 32.5 L (37.0-47.0) % MCV 85.1 (81.0-99.0) fL MCH 27.7 (27.0-31.0) pg MCHC 32.6 (32.0-36.0) g/dL RDW 14.2 (12.0-15.0) % Plt Count 337 (130-450) 10^3/uL MPV 9.3 (7.9-10.8) fL Neut # (Auto) Not Reportable Lymph # (Auto) Not Reportable Humphreys # (Auto) Not Reportable Eos # (Auto) Not Reportable Baso # (Auto) Not Reportable Absolute Nucleated RBC Not Reportable Total Counted 100 Band Neuts % (Manual) 13 H (0 - 10) % Abnorm Lymph % (Manual) 0 % Metamyelocytes % 1 H ( - 0) % Nucleated RBC % Not Reportable Neutrophils # (Manual) 9.3 H (1.5-6.6) 10^3/uL Lymphocytes # (Manual) 1.7 (1.5-3.5) 10^3/uL Monocytes # (Manual) 0.5 (0.0-1.0) 10^3/uL Eosinophils # (Manual) 0.0 (0-0.7) 10^3/uL Basophils # (Manual) 0.0 (0-0.1) 10^3/uL Differential Comment MANUAL DIFFERENTIAL Manual Slide Review Indicated WBC Morphology NORMAL APPEARANCE (NORMAL) Platelet Estimate NORMAL (130-450,000) (NORMAL) Platelet Morphology NORMAL APPEARANCE (NORMAL) RBC Morph Micro Appear NORMAL APPEARANCE (NORMAL) Sodium 136 (135-145) mmol/L Potassium 2.9 L (3.5-5.0) mmol/L Chloride 102 (101-111) mmol/L Carbon Dioxide 26 (21-32) mmol/L Anion Gap 8.0 (6-13) BUN 8 (6-20) mg/dL Creatinine 0.6 (0.4-1.0) mg/dL Estimated GFR (MDRD) 101 (>89) Glucose 113 H (70-100) mg/dL Calcium 7.9 L (8.5-10.3) mg/dL - Current Medications Current Medications: Current Medications Generic Name Dose Route Start Last Admin Trade Name Nedq PRN Reason Stop Dose Admin Enoxaparin Sodium 40 mg 12/14/21 09:00 12/14/21 09:06 Enoxaparin 40 Mg/0.4 Ml Syringe SUBQ 40 mg DAILY BECKI Administration Lactated Ringer's 1,000 mls @ 100 mls/hr 12/13/21 10:00 12/13/21 21:09 Lr IV 100 mls/hr .Q10H BECKI Administration Piperacillin Sod/Tazobactam 100 mls @ 200 mls/hr 12/13/21 12:00 12/14/21 06:30 Sod 3.375 gm/ Sodium Chloride IV Infused Q6HR BECKI Infusion Acetaminophen 100 mls @ 400 mls/hr 12/13/21 10:00 12/14/21 04:31 Ofirmev IV Infused Q6H BECKI Infusion Ketorolac Tromethamine 15 mg 12/13/21 09:36 12/13/21 14:42 Ketorolac 15 Mg/Ml Vial IVP 12/18/21 09:35 15 mg Q6H PRN Administration PAIN Pantoprazole Sodium 40 mg 12/14/21 07:00 12/14/21 05:59 Pantoprazole 40 Mg Vial IVP 40 mg QDAC BECKI Administration Sodium Chloride 10 ml 12/13/21 17:00 12/13/21 23:39 Sodium Chloride Flush 0.9% 10 Ml Syringe IVP 10 ml 0100,0900,1700 BECKI Administration Sodium Chloride 10 ml 12/13/21 09:36 12/13/21 14:43 Sodium Chloride Flush 0.9% 10 Ml Syringe IVP 10 ml PRN PRN Administration NEEDED PER PROVIDER ORDERS - Physical Exam Wound/Incisions: positive: Healing well General Appearance: positive: No acute distress, Alert Eyes Bilateral: positive: Normal inspection ENT: positive: ENT inspection nml Neck: positive: Nml inspection Respiratory: positive: Chest non-tender, No respiratory distress, Breath sounds nml Cardiovascular: positive: Regular rate & rhythm Abdomen: positive: Nml bowel sounds, No distention, Tenderness, Other (Drain is creamy with some chunks) Back: positive: Nml inspection Skin: positive: Color nml Extremities: positive: Non-tender, Full ROM ABX Reporting Has patient been on IV antibiotics over the past 48 hours?: Yes Impression/Plan - Problem List Problem List: 1. Postop day #1 after laparoscopic appendectomy for perforated appendicitis and abscess.On Zosyn. 2. Culture has grown E. coli with sensitivities to follow 3. Excellent bowel function without nausea so I will to regular. 4. Drain is still a bit creamy so need to stay in place for now. 5. White count and differential are improved. Potassium is low so will replace with K riders.
[2021-12-14] MEDS ORDERED: oxyCODONE 5 MG TABLET PO PRN (11:28)
[2021-12-14] MEDS: LACTATED RINGERS 1,000 ML IV SCH ×2 (11:52→22:53)
[2021-12-14] MEDS: POTASSIUM CHLOR 10 MEQ/100 ML 10 MEQ/100 ML BAG IV SCH ×4 (11:52→19:33)
[2021-12-14] MEDS: SODIUM CHLORIDE FLUSH 0.9% 10 ML SYRINGE IVP SCH ×2 (13:39→19:33)
[2021-12-14] MEDS: KETOROLAC 15 MG/ML VIAL IVP PRN (16:04)
[2021-12-15] MEDS: KETOROLAC 15 MG/ML VIAL IVP PRN ×4 (00:48→18:33)
[2021-12-15] MEDS: PIPERACILLIN/TAZOBACTAM 3.375 GM in SODIUM CHLORIDE 0.9% MINIBAG 100 ML IV SCH ×4 (01:14→18:36)
[2021-12-15] MEDS: SODIUM CHLORIDE FLUSH 0.9% 10 ML SYRINGE IVP SCH ×3 (01:14→16:48)
[2021-12-15] MEDS: ACETAMINOPHEN 1,000 MG/100 ML 100 ML IV SCH ×4 (01:24→19:25)
[2021-12-15] MEDS: PANTOPRAZOLE 40 MG VIAL IVP SCH (06:09)
[2021-12-15 08:21] LABS: BASOPHILS % (AUTO) 0.3 %; EOSINOPHILS % (AUTO) 0.3 %; HCT - HEMATOCRIT 33.2 % (37.0-47.0); HGB - HEMOGLOBIN 10.9 g/dL (12.0-16.0); LYMPHOCYTES # (AUTO) 1.4 10^3/uL (1.5-3.5); MEAN CORPUSCULAR HEMOGLOBIN 27.9 pg (27.0-31.0); MEAN CORPUSCULAR HGB CONC 32.8 g/dL (32.0-36.0); MEAN CORPUSCULAR VOLUME 84.9 fL (81.0-99.0); MEAN PLATELET VOLUME 9.1 fL (7.9-10.8); MONOCYTES # (AUTO) 0.5 10^3/uL (0.0-1.0); MONOCYTES % (AUTO) 4.2 %; NEUTROPHILS # (AUTO) 10.4 10^3/uL (1.5-6.6); NEUTROPHILS % (AUTO) 83.6 %; PLT - PLATELET COUNT 391 10^3/uL (130-450); RED BLOOD COUNT 3.91 10^6/uL (4.20-5.40); RED CELL DISTRIBUTION WIDTH 14.1 % (12.0-15.0); WHITE BLOOD COUNT 12.5 x10^3/uL (4.8-10.8)
[2021-12-15 08:31] LABS: CALCIUM 7.8 mg/dL (8.5-10.3); CREATININE 0.5 mg/dL (0.4-1.0)
[2021-12-15] MEDS: POTASSIUM CHLORIDE 20 MEQ/15 ML UDC PO SCH ×4 (09:14→18:36)
[2021-12-15] MEDS: ENOXAPARIN 40 MG/0.4 ML SYRINGE SUBQ SCH (09:15)
--- NOTE | 2021-12-15 10:33 | PROVIDER PROGRESS NOTE ---
Subjective - General Admit Date: 12/13/21 Procedure Date: 12/13/21 Post Op Days: 2 Procedure Performed: Lap appy - Review of Systems Wound/Incisions: positive: Healing well General: positive: Fatigue HEENT: positive: No symptoms Pulmonary: positive: No symptoms Cardiovascular: positive: No symptoms Gastrointestinal: positive: Abdominal pain. negative: Nausea, Vomiting Genitourinary: positive: No symptoms Musculoskeletal: positive: No symptoms All Other Systems: positive: Reviewed and negative - Other Other Information/Narrative: Improving. Pain controlled. Tolerating gen diet. Objective - Patient Data Reviewed Vital Signs: Yes Vital Signs: Vital Signs x48h Temp Pulse Resp BP Pulse Ox 12/15/21 07:26 36.4 C L 94 18 156/76 H 99 Weight: Weight 12/13/21 12/14/21 12/15/21 23:59 23:59 23:59 Weight (kg) 80.5 kg Intake & Output: Intake and Output Totals x24h 12/13/21 12/14/21 12/15/21 23:59 23:59 23:59 Intake Total 5656.667 3953.333 870 Output Total 2065 530 20 Balance 3591.667 3423.333 850 - Lab Results Lab Results: 12/15/21 07:40 12/15/21 07:40 Other Lab Results: Lab Results x24hrs 12/15/21 12/15/21 Range/Units 07:40 07:40 WBC 12.5 H (4.8-10.8) x10^3/uL RBC 3.91 L (4.20-5.40) 10^6/uL Hgb 10.9 L (12.0-16.0) g/dL Hct 33.2 L (37.0-47.0) % MCV 84.9 (81.0-99.0) fL MCH 27.9 (27.0-31.0) pg MCHC 32.8 (32.0-36.0) g/dL RDW 14.1 (12.0-15.0) % Plt Count 391 (130-450) 10^3/uL MPV 9.1 (7.9-10.8) fL Neut # (Auto) 10.4 H (1.5-6.6) 10^3/uL Lymph # (Auto) 1.4 L (1.5-3.5) 10^3/uL Overton # (Auto) 0.5 (0.0-1.0) 10^3/uL Eos # (Auto) 0.0 (0.0-0.7) 10^3/uL Baso # (Auto) 0.0 (0.0-0.1) 10^3/uL Absolute Nucleated RBC 0.00 x10^3/uL Nucleated RBC % 0.0 /100WBC Sodium 135 (135-145) mmol/L Potassium 3.0 L (3.5-5.0) mmol/L Chloride 100 L (101-111) mmol/L Carbon Dioxide 26 (21-32) mmol/L Anion Gap 9.0 (6-13) BUN 7 (6-20) mg/dL Creatinine 0.5 (0.4-1.0) mg/dL Estimated GFR (MDRD) 124 (>89) Glucose 101 H (70-100) mg/dL Calcium 7.8 L (8.5-10.3) mg/dL - Current Medications Current Medications: Current Medications Generic Name Dose Route Start Last Admin Trade Name Freq PRN Reason Stop Dose Admin Enoxaparin Sodium 40 mg 12/14/21 09:00 12/15/21 09:15 Enoxaparin 40 Mg/0.4 Ml Syringe SUBQ 40 mg DAILY BECKI Administration Lactated Ringer's 1,000 mls @ 100 mls/hr 12/13/21 10:00 12/14/21 22:53 Lr IV 100 mls/hr .Q10H BECKI Administration Piperacillin Sod/Tazobactam 100 mls @ 200 mls/hr 12/13/21 12:00 12/15/21 06:39 Sod 3.375 gm/ Sodium Chloride IV Infused Q6HR BECKI Infusion Acetaminophen 100 mls @ 400 mls/hr 12/13/21 10:00 12/15/21 07:31 Ofirmev IV Infused Q6H BECKI Infusion Ketorolac Tromethamine 15 mg 12/13/21 09:36 12/15/21 06:05 Ketorolac 15 Mg/Ml Vial IVP 12/18/21 09:35 15 mg Q6H PRN Administration PAIN Pantoprazole Sodium 40 mg 12/14/21 07:00 01/29/22 06:09 Pantoprazole 40 Mg Vial IVP 40 mg QDAC BECKI Administration Potassium Chloride 20 meq 12/15/21 09:00 12/15/21 09:14 Potassium Chloride 20 Meq/15 Ml Udc PO 12/15/21 18:01 20 meq Q3HR BECKI Administration Sodium Chloride 10 ml 12/13/21 17:00 12/15/21 01:14 Sodium Chloride Flush 0.9% 10 Ml Syringe IVP 10 ml 0100,0900,1700 BECKI Administration Sodium Chloride 10 ml 12/13/21 09:36 12/13/21 14:43 Sodium Chloride Flush 0.9% 10 Ml Syringe IVP 10 ml PRN PRN Administration NEEDED PER PROVIDER ORDERS - Physical Exam Wound/Incisions: positive: Dressing dry and intact General Appearance: positive: No acute distress, Alert Respiratory: positive: No respiratory distress Cardiovascular: positive: Regular rate & rhythm Abdomen: positive: Tenderness (around incisions, expected, no rebound or guarding), Other (soft; drain bulb with cloudy serosang fluid). negative: Mass Skin: positive: Warm, Dry Extremities: positive: No pedal edema Neurologic/Psychiatric: positive: Oriented x3, Mood/affect nml ABX Reporting Has patient been on IV antibiotics over the past 48 hours?: Yes Impression/Plan - Problem List Problem List: 66 F s/p lap appy 12/13/21 for perforated appendicitis. Doing well. Anticipate d/c in next day or two. - PO pain meds - gen diet - HLIV - continue zosyn, f/u cx sensitivities (growing e. coli) and transition to PO for home - K low, repleting with PO KCl - Drain output downtrending, still a little cloudy Likely d/c Friday/Friday Gerald Farfan MD General Surgery
[2021-12-15] MEDS: LACTATED RINGERS 1,000 ML IV SCH (12:21)
[2021-12-16] MEDS: PIPERACILLIN/TAZOBACTAM 3.375 GM in SODIUM CHLORIDE 0.9% MINIBAG 100 ML IV SCH ×2 (00:51→06:22)
[2021-12-16] MEDS: SODIUM CHLORIDE FLUSH 0.9% 10 ML SYRINGE IVP SCH ×3 (00:52→16:34)
[2021-12-16] MEDS: LACTATED RINGERS 1,000 ML IV SCH ×2 (00:52→07:32)
[2021-12-16] MEDS: KETOROLAC 15 MG/ML VIAL IVP PRN ×3 (00:55→19:09)
[2021-12-16] MEDS: ACETAMINOPHEN 1,000 MG/100 ML 100 ML IV SCH ×2 (01:36→07:24)
[2021-12-16] MEDS: PANTOPRAZOLE 40 MG VIAL IVP SCH (06:22)
[2021-12-16 07:15] LABS: BASOPHILS % (AUTO) 0.3 %; EOSINOPHILS % (AUTO) 0.6 %; HCT - HEMATOCRIT 33.7 % (37.0-47.0); LYMPHOCYTES % (AUTO) 19.1 %; MEAN CORPUSCULAR HEMOGLOBIN 27.6 pg (27.0-31.0); MEAN CORPUSCULAR HGB CONC 32.6 g/dL (32.0-36.0); MEAN CORPUSCULAR VOLUME 84.5 fL (81.0-99.0); MEAN PLATELET VOLUME 8.8 fL (7.9-10.8); MONOCYTES % (AUTO) 4.3 %; PLT - PLATELET COUNT 421 10^3/uL (130-450); RED BLOOD COUNT 3.99 10^6/uL (4.20-5.40); RED CELL DISTRIBUTION WIDTH 14.2 % (12.0-15.0); WHITE BLOOD COUNT 9.9 x10^3/uL (4.8-10.8)
[2021-12-16 07:22] LABS: CALCIUM 7.8 mg/dL (8.5-10.3); CREATININE 0.6 mg/dL (0.4-1.0); POTASSIUM 3.5 mmol/L (3.5-5.0)
[2021-12-16 07:30] LABS: ABNORMAL LYMPHS % (MANUAL) 0 %
[2021-12-16 07:53] LABS: BAND NEUTROPHILS % (MANUAL) 2 %; DIFFERENTIAL COMMENT MANUAL DIFFERENTIAL; LYMPHOCYTES # (MANUAL) 1.9 10^3/uL (1.5-3.5); LYMPHOCYTES % (MANUAL) 19 %; MONOCYTES # (MANUAL) 0.4 10^3/uL (0.0-1.0); NEUTROPHILS # (MANUAL) 7.6 10^3/uL (1.5-6.6); PLATELET ESTIMATE, MANUAL NORMAL (130-450,000) (NORMAL); PLATELET MORPHOLOGY 1+ LARGE PLATELETS (NORMAL); RBC MORPHOLOGY (MULTIPLE) NORMAL APPEARANCE (NORMAL)
--- NOTE | 2021-12-16 08:08 | PROVIDER PROGRESS NOTE ---
Subjective - General Admit Date: 12/13/21 Procedure Date: 12/13/21 Post Op Days: 3 Procedure Performed: Lap appy - Review of Systems Wound/Incisions: positive: Healing well General: positive: Fatigue HEENT: positive: No symptoms Pulmonary: positive: No symptoms Cardiovascular: positive: No symptoms Gastrointestinal: positive: Abdominal pain. negative: Nausea, Vomiting Genitourinary: positive: No symptoms Musculoskeletal: positive: No symptoms All Other Systems: positive: Reviewed and negative - Other Other Information/Narrative: NAEO. Remains afebrile and WBC downtrending on am labs. Did have some diarrhea with K solution yesterday. Otherwise tolerating diet and pain controlled. Objective - Patient Data Reviewed Vital Signs: Yes Vital Signs: Vital Signs x48h Temp Pulse Resp BP Pulse Ox 12/16/21 02:00 36.7 C 98 18 160/94 H 96 Intake & Output: Intake and Output Totals x24h 12/14/21 12/15/21 12/16/21 23:59 23:59 23:59 Intake Total 3953.333 4070 300 Output Total 530 35 40 Balance 3423.333 4035 260 - Lab Results Lab Results: 12/16/21 06:42 12/16/21 06:42 Other Lab Results: Lab Results x24hrs 12/16/21 12/16/21 12/15/21 Range/Units 06:42 06:42 07:40 WBC 9.9 (4.8-10.8) x10^3/uL RBC 3.99 L (4.20-5.40) 10^6/uL Hgb 11.0 L (12.0-16.0) g/dL Hct 33.7 L (37.0-47.0) % MCV 84.5 (81.0-99.0) fL MCH 27.6 (27.0-31.0) pg MCHC 32.6 (32.0-36.0) g/dL RDW 14.2 (12.0-15.0) % Plt Count 421 (130-450) 10^3/uL MPV 8.8 (7.9-10.8) fL Neut # (Auto) Not Reportable (1.5-6.6) 10^3/uL Lymph # (Auto) Not Reportable (1.5-3.5) 10^3/uL Hood # (Auto) Not Reportable (0.0-1.0) 10^3/uL Eos # (Auto) Not Reportable (0.0-0.7) 10^3/uL Baso # (Auto) Not Reportable (0.0-0.1) 10^3/uL Absolute Nucleated RBC Not Reportable x10^3/uL Total Counted 100 Band Neuts % (Manual) 2 (0 - 10) % Abnorm Lymph % (Manual) 0 % Nucleated RBC % Not Reportable /100WBC Neutrophils # (Manual) 7.6 H (1.5-6.6) 10^3/uL Lymphocytes # (Manual) 1.9 (1.5-3.5) 10^3/uL Monocytes # (Manual) 0.4 (0.0-1.0) 10^3/uL Eosinophils # (Manual) 0.0 (0-0.7) 10^3/uL Basophils # (Manual) 0.0 (0-0.1) 10^3/uL Differential Comment MANUAL DIFFERENTIAL Platelet Estimate NORMAL (130-450,000) (NORMAL) Platelet Morphology 1+ LARGE PLATELETS (NORMAL) RBC Morph Micro Appear NORMAL APPEARANCE (NORMAL) Sodium 133 L 135 (135-145) mmol/L Potassium 3.5 3.0 L (3.5-5.0) mmol/L Chloride 98 L 100 L (101-111) mmol/L Carbon Dioxide 25 26 (21-32) mmol/L Anion Gap 10.0 9.0 (6-13) BUN 6 7 (6-20) mg/dL Creatinine 0.6 0.5 (0.4-1.0) mg/dL Estimated GFR (MDRD) 101 124 (>89) Glucose 104 H 101 H (70-100) mg/dL Calcium 7.8 L 7.8 L (8.5-10.3) mg/dL 12/15/21 Range/Units 07:40 WBC 12.5 H (4.8-10.8) x10^3/uL RBC 3.91 L (4.20-5.40) 10^6/uL Hgb 10.9 L (12.0-16.0) g/dL Hct 33.2 L (37.0-47.0) % MCV 84.9 (81.0-99.0) fL MCH 27.9 (27.0-31.0) pg MCHC 32.8 (32.0-36.0) g/dL RDW 14.1 (12.0-15.0) % Plt Count 391 (130-450) 10^3/uL MPV 9.1 (7.9-10.8) fL Neut # (Auto) 10.4 H (1.5-6.6) 10^3/uL Lymph # (Auto) 1.4 L (1.5-3.5) 10^3/uL Hood # (Auto) 0.5 (0.0-1.0) 10^3/uL Eos # (Auto) 0.0 (0.0-0.7) 10^3/uL Baso # (Auto) 0.0 (0.0-0.1) 10^3/uL Absolute Nucleated RBC 0.00 x10^3/uL Total Counted Band Neuts % (Manual) (0 - 10) % Abnorm Lymph % (Manual) % Nucleated RBC % 0.0 /100WBC Neutrophils # (Manual) (1.5-6.6) 10^3/uL Lymphocytes # (Manual) (1.5-3.5) 10^3/uL Monocytes # (Manual) (0.0-1.0) 10^3/uL Eosinophils # (Manual) (0-0.7) 10^3/uL Basophils # (Manual) (0-0.1) 10^3/uL Differential Comment Platelet Estimate (NORMAL) Platelet Morphology (NORMAL) RBC Morph Micro Appear (NORMAL) Sodium (135-145) mmol/L Potassium (3.5-5.0) mmol/L Chloride (101-111) mmol/L Carbon Dioxide (21-32) mmol/L Anion Gap (6-13) BUN (6-20) mg/dL Creatinine (0.4-1.0) mg/dL Estimated GFR (MDRD) (>89) Glucose (70-100) mg/dL Calcium (8.5-10.3) mg/dL - Current Medications Current Medications: Current Medications Generic Name Dose Route Start Last Admin Trade Name Freq PRN Reason Stop Dose Admin Enoxaparin Sodium 40 mg 12/14/21 09:00 12/15/21 09:15 Enoxaparin 40 Mg/0.4 Ml Syringe SUBQ 40 mg DAILY BECKI Administration Acetaminophen 100 mls @ 400 mls/hr 12/13/21 10:00 12/16/21 07:24 Ofirmev IV 400 mls/hr Q6H BECKI Administration Ketorolac Tromethamine 15 mg 12/13/21 09:36 12/16/21 07:24 Ketorolac 15 Mg/Ml Vial IVP 12/18/21 09:35 15 mg Q6H PRN Administration PAIN Pantoprazole Sodium 40 mg 12/14/21 07:00 12/16/21 06:22 Pantoprazole 40 Mg Vial IVP 40 mg QDAC BECKI Administration Sodium Chloride 10 ml 12/13/21 17:00 12/16/21 00:52 Sodium Chloride Flush 0.9% 10 Ml Syringe IVP 10 ml 0100,0900,1700 BECKI Administration Sodium Chloride 10 ml 12/13/21 09:36 12/13/21 14:43 Sodium Chloride Flush 0.9% 10 Ml Syringe IVP 10 ml PRN PRN Administration NEEDED PER PROVIDER ORDERS - Physical Exam Wound/Incisions: positive: Healing well (dry dressing removed; incisions stapled; umbilical incision with gauze wick; no erythema or drainage; drain cloudy serosang) General Appearance: positive: No acute distress, Alert Eyes Bilateral: positive: EOMI Respiratory: positive: No respiratory distress Cardiovascular: positive: Regular rate & rhythm, Tachycardia (HR 90s-100s) Abdomen: positive: Other (soft, non-distended, appopriately TTP around incisions without rebound or guarding; incisions CDI with leroy; gauze wick at umbilicus, no erythema or drainage; drain site clean) Skin: positive: Warm, Dry Extremities: positive: No pedal edema Neurologic/Psychiatric: positive: Oriented x3, Mood/affect nml ABX Reporting Has patient been on IV antibiotics over the past 48 hours?: Yes Impression/Plan - Problem List Problem List: 66 F s/p lap appy 12/13/21 for perforated appendicitis. Doing well. Anticipate d/c tomorrow. - PO pain meds - gen diet - HLIV - e. coli from cx ayers-sensitive, switching to levaquin and stopping zosyn - stopping zofran for interaction w levaquin - WBC downtrending, check daily labs - K low, repleting with PO KCl - Drain output stable, still a little cloudy Likely d/c Friday if remains afebrile and doing well on levaquin. Gerald Farfan MD General Surgery
--- NOTE | 2021-12-16 09:14 | CONSULTATION NOTE ---
Referring Provider Name of Referring Provider:: Dr Farfan (General Surgery) Consult Date: 12/16/21 Chief Complaint - Chief Complaint Chief Complaint: HTN History of Present Illness - History Obtained From History obtained from: Patient - History of Present Illness HPI Comment/Other: This is a 66-year-old white female who has a negative past medical history except tonsillectomy as a child. She takes no prescription medications normally, except uses OTC Sudafed nearly daily for allergy symptoms. Patient was admitted several days ago with a ruptured appendix and required a lap appendectomy and a abdominal abscess was found. The cultures grew E coli and she is on IV Zosyn. Her blood pressure has been intermittently as high as 170 systolic, for which the consult was requested today. At presentation her blood pressure was 140/80 and heart rate was 138. She was tachycardic in the 130 range for an entire day and the heart rate improved after having her surgery. She is currently tachycardic at 107 on monitor technician despite not being in pain or dehydrated. The patient states she has had "whitecoat HTN" all her life, she had very high blood pressure during delivery of one of her 5 children but no eclampsia or pre- eclampsia She gets elevated blood pressure "easily with any type of stress". She describes having slight ankle swelling constantly. She uses OTC Sudafed daily, for controlling allergy symptoms of post-nasal drip and sneezing. She has never been on a blood pressure medication and does not always follow a low-salt diet. She denies a past cardiac or pulmonary history. 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 (She is the caregiver of her spouse who has dementia) Social History Notes: She is retired from a secretarial job. She does not smoke cigarettes and never smoked. She drinks rare alcohol. She denies any illicit drug use history. - Substance History Use: Uses substance without health or social issues: NONE - POLST Patient has POLST: No Meds/Allgy - Home Medications Home Medications: Ambulatory Orders Medication Instructions Recorded Confirmed No Known Home Medications 12/14/21 12/14/21 - Allergies Allergies/Adverse Reactions: Allergies Allergy/AdvReac Type Severity Reaction Status Date / Time No Known Drug Allergies Allergy Verified 11/05/16 14:22 Review of Systems - Ears, Nose & Throat Ears, Nose & Throat: reports: Nasal discharge (post-nasal drip) - Cardiovascular Cariovascular: reports: Edema - All Other Systems All Other Systems: reports: Reviewed and negative Exam - Vital Signs Reviewed Vital Signs: Yes Vital Signs: Vital Signs x48h Temp Pulse Resp BP Pulse Ox 12/16/21 08:04 36.8 C 102 H 16 172/90 H 97 12/16/21 02:00 36.7 C 98 18 160/94 H 96 - Physical Exam General Appearance: positive: No acute distress, Alert Eyes Bilateral: positive: Normal inspection, EOMI ENT: positive: ENT inspection nml, No signs of dehydration Neck: positive: Nml inspection, Other ((+) JVD) Respiratory: positive: No respiratory distress, Breath sounds nml Cardiovascular: positive: Regular rate & rhythm, No murmur, Tachycardia Peripheral Pulses: positive: 2+ Abdomen: positive: Non-tender, No distention Skin: positive: No rash, Warm, Dry Extremities: positive: Other (Trace ankle edema) Neurologic/Psychiatric: positive: Oriented x3, CN's nml (2-12), Motor nml Conclusion/Plan - Problem List (1) HTN (hypertension) Conclusion/Plan: Patient has intermittent elevations of blood pressure, she is not always hypertensive and has never been officially started on outpatient daily BP meds. Since admission, her BP has climbed up daily, today was as high as 172/90. Plan: Agree with discontinuation of her iv Zosyn, which is given in normal saline, and therefore gives her high salt load. Stop her IV fluids if they contain saline. Check thyroid labs to assure she is not hyperthyroid causing her heart rate and blood pressure elevation. [place] a low-salt diet (I ordered this). She should be instructed to follow a low salt diet at home. We will give BP meds while she is here using a daily beta-beck, for blood pressure and elevated heart rate control, and also using HCTZ for the leg edema (I ordered these). At discharge, she does not necessarily need to be on daily BP meds. She needs follow-up with her PCP to make a determination if a chronic anti-hypertensive med needs to be started. She should not be using daily Sudafed at home, which raises blood pressure. Alternatively, something like Loratadine or Claritin should be advised for allergy symptoms. (2) Tachycardia Conclusion/Plan: While I am seeing her, the HR is 110 in sinus tacycardia. Etiology of her resting tachycardia is unclear, since she is not in pain, not dehydrated, does not appear anxious, and has no fever currently. Plan: Put her on telemetry to watch the cardiac rhythm. If she develops any rhythm other than sinus rhythm, would recommend cycling troponins and obtaining an Echocardiogram to evaluate for structural heart disease. Check thyroid labs to assure she is not hyperthyroid causing her heart rate elevation. We will give BP meds while she is here using a daily beta-beck, for blood pressure and elevated heart rate control. Assure she has good pain control. Continue antibx for her infection. (3) Appendicitis Conclusion/Plan: She had a ruptured appendix and an intraperitoneal abscess was found. Plan: Continue with IV antibiotics and wound management as per General Surgery. Qualifiers: Appendicitis type: acute appendicitis Acute appendicitis type: with generalized peritonitis Appendicitis gangrene presence: unspecified whether gangrene present Appendicitis perforation presence: with perforation - Lab Results Lab results reviewed: Yes Fish Bones: 12/16/21 06:42 12/16/21 06:42 - Diagnostic Imaging Results Diagnostic Imaging Results: positive: Final report reviewed - EKG Results EKG Interpreted Independently: Yes EKG Findings: At the time of admission her EKG showed: Sinus tachycardia, rate 145, nonspecific ST-T changes which were probably rate-related. No prior EKG available for comparison. - Other Other Results/Comments: Thank you for allowing the Hospitalist team to participate in her medical management.
[2021-12-16] MEDS: POTASSIUM CHLORIDE 20 MEQ TABLET PO SCH ×2 (10:16→11:23)
[2021-12-16] MEDS: levoFLOXacin 250 MG TABLET PO SCH (10:16)
[2021-12-16] MEDS: hydroCHLOROthiazide 25 MG TABLET PO SCH (10:17)
[2021-12-16] MEDS: METOPROLOL SUCCINATE 25 MG TABLET PO SCH (10:18)
[2021-12-16] MEDS: ENOXAPARIN 40 MG/0.4 ML SYRINGE SUBQ SCH (10:18)
[2021-12-16] MEDS ORDERED: ACETAMINOPHEN 325 MG TABLET PO PRN (10:35)
[2021-12-17] MEDS: SODIUM CHLORIDE FLUSH 0.9% 10 ML SYRINGE IVP SCH ×2 (00:30→07:57)
[2021-12-17] MEDS ORDERED: METOPROLOL 5 MG/5 ML VIAL IVP PRN (03:45)
[2021-12-17 06:08] LABS: BASOPHILS % (AUTO) 0.4 %; EOSINOPHILS % (AUTO) 1.6 %; HCT - HEMATOCRIT 37.7 % (37.0-47.0); HGB - HEMOGLOBIN 12.3 g/dL (12.0-16.0); LYMPHOCYTES % (AUTO) 31.3 %; MEAN CORPUSCULAR HEMOGLOBIN 27.5 pg (27.0-31.0); MEAN CORPUSCULAR HGB CONC 32.6 g/dL (32.0-36.0); MEAN CORPUSCULAR VOLUME 84.3 fL (81.0-99.0); MEAN PLATELET VOLUME 8.7 fL (7.9-10.8); MONOCYTES % (AUTO) 9.2 %; NEUTROPHILS % (AUTO) 54.9 %; PLT - PLATELET COUNT 478 10^3/uL (130-450); RED BLOOD COUNT 4.47 10^6/uL (4.20-5.40); RED CELL DISTRIBUTION WIDTH 14.4 % (12.0-15.0)
[2021-12-17 06:17] LABS: ABNORMAL LYMPHS % (MANUAL) 0 %; BAND NEUTROPHILS % (MANUAL) 0 %
[2021-12-17 06:20] LABS: CALCIUM 8.6 mg/dL (8.5-10.3); CREATININE 0.5 mg/dL (0.4-1.0); POTASSIUM 3.5 mmol/L (3.5-5.0)
[2021-12-17 06:29] LABS: DIFFERENTIAL COMMENT MANUAL DIFFERENTIAL; EOSINOPHILS # (MANUAL) 0.1 10^3/uL (0-0.7); LYMPHOCYTES % (MANUAL) 29 %; MONOCYTES # (MANUAL) 0.4 10^3/uL (0.0-1.0); NEUTROPHILS # (MANUAL) 4.5 10^3/uL (1.5-6.6); PLATELET ESTIMATE, MANUAL INCREASED (>450,000) (NORMAL); PLATELET MORPHOLOGY NORMAL APPEARANCE (NORMAL); RBC MORPHOLOGY (MULTIPLE) NORMAL APPEARANCE (NORMAL); WBC MORPHOLOGY (MULTIPLE) NORMAL APPEARANCE (NORMAL)
[2021-12-17] MEDS ORDERED: PANTOPRAZOLE 40 MG TABLET PO SCH (07:00)
[2021-12-17] MEDS: KETOROLAC 15 MG/ML VIAL IVP PRN (07:09)
[2021-12-17] MEDS: SODIUM CHLORIDE FLUSH 0.9% 10 ML SYRINGE IVP PRN (07:10)
[2021-12-17] MEDS: METOPROLOL SUCCINATE 25 MG TABLET PO SCH (07:56)
[2021-12-17] MEDS: ENOXAPARIN 40 MG/0.4 ML SYRINGE SUBQ SCH (07:56)
[2021-12-17] MEDS: hydroCHLOROthiazide 25 MG TABLET PO SCH (07:56)
[2021-12-17] MEDS: levoFLOXacin 250 MG TABLET PO SCH (07:57)
--- NOTE | 2021-12-17 11:07 | PROVIDER PROGRESS NOTE ---
Subjective - General Admit Date: 12/13/21 Procedure Date: 12/13/21 Post Op Days: 4 Procedure Performed: Lap appy - Review of Systems Wound/Incisions: positive: Healing well (dry dressing removed; incisions s tapled; umbilical incision with gauze wick; no erythema or drainage; drain cloudy serosang) General: positive: Fatigue HEENT: positive: No symptoms Pulmonary: positive: No symptoms Cardiovascular: positive: No symptoms Gastrointestinal: positive: Abdominal pain. negative: Nausea, Vomiting Genitourinary: positive: No symptoms Musculoskeletal: positive: No symptoms All Other Systems: positive: Reviewed and negative Objective - Patient Data Vital Signs: Vital Signs x48h Temp Pulse Resp BP BP Pulse Ox 12/17/21 09:35 152/92 H 12/17/21 07:47 36.4 C L 102 H 19 182/90 H 186/97 H 98 12/17/21 06:24 36.5 C 96 18 152/91 H 98 12/17/21 04:20 102 H 155/98 H 12/17/21 03:41 96 165/82 H 168/90 H 12/17/21 03:19 36.7 C 104 H 18 175/87 H 99 Intake & Output: Intake and Output Totals x24h 12/15/21 12/16/21 12/17/21 23:59 23:59 23:59 Intake Total 4070 2631.333 400 Output Total 35 40 20 Balance 4035 2591.333 380 - Lab Results Lab Results: 12/17/21 05:40 12/17/21 05:30 Other Lab Results: Lab Results x24hrs 12/17/21 12/17/21 Range/Units 05:40 05:30 WBC 7.0 (4.8-10.8) x10^3/uL RBC 4.47 (4.20-5.40) 10^6/uL Hgb 12.3 (12.0-16.0) g/dL Hct 37.7 (37.0-47.0) % MCV 84.3 (81.0-99.0) fL MCH 27.5 (27.0-31.0) pg MCHC 32.6 (32.0-36.0) g/dL RDW 14.4 (12.0-15.0) % Plt Count 478 H (130-450) 10^3/uL MPV 8.7 (7.9-10.8) fL Neut # (Auto) Not Reportable Lymph # (Auto) Not Reportable [place] # (Auto) Not Reportable Eos # (Auto) Not Reportable Baso # (Auto) Not Reportable Absolute Nucleated RBC Not Reportable Total Counted 100 Band Neuts % (Manual) 0 (0 - 10) % Abnorm Lymph % (Manual) 0 % Nucleated RBC % Not Reportable Neutrophils # (Manual) 4.5 (1.5-6.6) 10^3/uL Lymphocytes # (Manual) 2.0 (1.5-3.5) 10^3/uL Monocytes # (Manual) 0.4 (0.0-1.0) 10^3/uL Eosinophils # (Manual) 0.1 (0-0.7) 10^3/uL Basophils # (Manual) 0.0 (0-0.1) 10^3/uL Differential Comment MANUAL DIFFERENTIAL WBC Morphology NORMAL APPEARANCE (NORMAL) Platelet Estimate INCREASED (>450,000) (NORMAL) Platelet Morphology NORMAL APPEARANCE (NORMAL) RBC Morph Micro Appear NORMAL APPEARANCE (NORMAL) Sodium 135 (135-145) mmol/L Potassium 3.5 (3.5-5.0) mmol/L Chloride 98 L (101-111) mmol/L Carbon Dioxide 26 (21-32) mmol/L Anion Gap 11.0 (6-13) BUN 7 (6-20) mg/dL Creatinine 0.5 (0.4-1.0) mg/dL Estimated GFR (MDRD) 124 (>89) Glucose 108 H (70-100) mg/dL Calcium 8.6 (8.5-10.3) mg/dL - Current Medications Current Medications: Current Medications Generic Name Dose Route Start Last Admin Trade Name Freq PRN Reason Stop Dose Admin Enoxaparin Sodium 40 mg 12/14/21 09:00 12/17/21 07:56 Enoxaparin 40 Mg/0.4 Ml Syringe SUBQ 40 mg DAILY BECKI Administration Hydrochlorothiazide 25 mg 12/16/21 10:00 12/17/21 07:56 Hydrochlorothiazide 25 Mg Tablet PO 25 mg DAILY BECKI Administration Ketorolac Tromethamine 15 mg 12/13/21 09:36 12/17/21 07:09 Ketorolac 15 Mg/Ml Vial IVP 12/18/21 09:35 15 mg Q6H PRN Administration PAIN Levofloxacin 750 mg 12/16/21 09:00 12/17/21 07:57 Levofloxacin 250 Mg Tablet PO 12/20/21 09:01 750 mg DAILY BECKI Administration Metoprolol Succinate 25 mg 12/16/21 09:00 12/17/21 07:56 Metoprolol Succinate 25 Mg Tablet PO 25 mg DAILY BECKI Administration Pantoprazole Sodium 40 mg 12/17/21 07:00 12/17/21 07:55 Pantoprazole 40 Mg Tablet PO 40 mg QDAC BECKI Administration Sodium Chloride 10 ml 12/13/21 17:00 12/17/21 07:57 Sodium Chloride Flush 0.9% 10 Ml Syringe IVP 10 ml 0100,0900,1700 BECKI Administration Sodium Chloride 10 ml 12/13/21 09:36 12/17/21 07:10 Sodium Chloride Flush 0.9% 10 Ml Syringe IVP 10 ml PRN PRN Administration NEEDED PER PROVIDER ORDERS
--- NOTE | 2021-12-17 13:02 | Discharge Plan ---
Discharge Plan Problem Reviewed?: Yes Disposition: Home, Self Care Condition: Stable Prescriptions: oxyCODONE [Roxicodone] 5 mg PO Q4HR PRN #10 tablet PRN Reason: Pain Docusate Sodium 100Mg Capsule [Colace 100Mg Capsule] 200 mg PO DAILY #10 cap levoFLOXacin [Levaquin] 500 mg PO DAILY #3 tablet Diet: Regular Activity Restrictions: 10 lb lifting limit Shower Restrictions: No Driving Restrictions: Yes (Not while taking narcotics) No Smoking: If you smoke, Please STOP! Call for help. Follow-up with: Kj Mejia MD [Provider Admit Priv/Credential] -
--- NOTE | 2021-12-17 13:09 | DISCHARGE SUMMARY ---
"Discharge Summary Admit Date: 12/13/21 Discharge Date: 12/17/21 Discharging Provider: Jackie Primary Care Provider: TATO Aguilar Condition at Discharge: Stable Discharge Disposition: 01 Home, Self Care - DIAGNOSES Admission Diagnoses: Perforated appendicitis Discharge Diagnoses with Status of Each Condition: Resolved - HPI History of Present Illness: Very pleasant and active 66-year-old lady presented to the emergency room via EMS after 2 days of right lower quadrant pain. This was accompanied by dizziness and generalized malaise and weakness. She reports that the pain started abruptly while she was riding her bicycle. She is never had a similar episode. She takes no medications and has no chronic illnesses. She was determined on CT images to have perforated appendicitis and I was consulted for definitive management. - CONSULTS | PROCEDURES Consultations: Hospitalist service Procedures: Laparoscopic appendectomy with evacuation of abscess, drain placement, and umbilical hernia repair. - HOSPITAL COURSE Hospital Course: The patient was admitted to the surgical service and taken immediately to the operating room for laparoscopy with appendectomy, drainage of intraperitoneal abscess, drain placement, and umbilical hernia repair. She was admitted to the MedSurg unit postoperatively for continued convalescence and supportive care. She was noted to be febrile for the first 24 hours and then began to improve significantly.She had bowel function throughout her stay and did not suffer with any symptoms of ileus. On the second postoperative day she was noted to be hypertensive and on the third postoperative day this caused enough concern that the hospitalist service was consulted for management.They recommended stopping Zosyn as it is given in a saline solution and she was changed to oral Levaquin.She was also given as needed hydrochlorothiazide and metoprolol.This morning, she is tolerating a regular diet and her pain is well controlled with oral meds. Her drain output is serous and minimal.She is being discharged to her home in the care of her family. She will need 3 more doses of oral Levaquin and this has been prescribed for her. Discharge medications will also include stool softeners and pain medication.She will follow-up with me in my office in 2 weeks. - ALLERGIES Allergies/Adverse Reactions: Allergies Allergy/AdvReac Type Severity Reaction Status Date / Time No Known Drug Allergies Allergy Verified 11/05/16 14:22 - MEDICATIONS Home Medications: Ambulatory Orders Medication Instructions Recorded Confirmed Docusate Sodium 100Mg Capsule 200 mg PO DAILY #10 cap 12/17/21 [Colace 100Mg Capsule] levoFLOXacin [Levaquin] 500 mg PO DAILY #3 tablet 12/17/21 oxyCODONE [Roxicodone] 5 mg PO Q4HR PRN #10 tablet 12/17/21 - PHYSICAL EXAM AT DISCHARGE General Appearance: positive: No acute distress, Alert Eyes Bilateral: positive: Normal inspection, PERRL, EOMI ENT: positive: ENT inspection nml Neck: positive: Nml inspection Respiratory: positive: No respiratory distress, Breath sounds nml Cardiovascular: positive: Regular rate & rhythm Peripheral Pulses: positive: 1+ Abdomen: positive: Nml bowel sounds, Tenderness. negative: Guarding, Rebound Skin: positive: Color nml Neurologic/Psychiatric: positive: Oriented x3 - LABS Result Diagrams: 12/17/21 05:40 12/17/21 05:30 - QUALITY (Female Hip Fx Only) Was patient sent home on osteoporosis medication?: No - FOLLOW UP Follow Up: 2 weeks with Counts Include [facility] At [facility] - TIME SPENT Time Spent in Discharge (Minutes): 20"
[2021-12-17 14:45] VITALS: BP 167/83
== END 2021-12-17 15:05 | disposition home or self-care (01) | DRG 340 ==
LOC: EDUNIT# → SUPCPDRO 00:31 → ED 00:31 → MS2 08:15 → ED 08:24
PROVIDERS: ADMIT Surgery; ATTEND Surgery
PROC: 0WQF0ZZ Repair Abdominal Wall, Open Approach (ICD-10-PCS; 2021-12-13)
PROC: 0DTJ4ZZ Resection of Appendix, Percutaneous Endoscopic Approach (ICD-10-PCS; principal; 2021-12-13 08:30)
DX: K35.21 Acute appendicitis with generalized peritonitis, with abscess (principal); K42.9 Umbilical hernia without obstruction or gangrene; I10 Essential (primary) hypertension; R00.0 Tachycardia, unspecified; Z20.822 Contact with and (suspected) exposure to COVID-19
CPT/HCPCS: 0202U; 36415; 74177; 80048; 80053; 81003; 83690; 84443; 85025; 87070; 87181; 87205; 93005; 96365; 96375; 96376; 99284; 99285; A9270; J0131; J1170; J1650; J7120; Q9967; 81001; 87086

== ENCOUNTER 2022-01-03 07:19 | Outpatient (CLI) | payer OTHER ==
--- NOTE | 2022-01-03 12:41 | XRAY Report ---
PROCEDURE: Lumbar Spine 2 View INDICATIONS: BACK PAIN,LUMBAR,W/ RADICULOPATHY LLE TECHNIQUE: 3 views of the lumbar spine were acquired. COMPARISON: None. FINDINGS: Bones: 5 [id number] vertebrae are present. There is trace L2-L3 and L3-L4 retrolisthesis. Ther e is mild convex left lumbar spinal scoliosis. No vertebral body compression fractures. No suspiciou s bony lesions. Moderate degenerative changes noted throughout the lumbar spine. Moderate L3-L4, L4-L 5 and L5-S1 facet arthropathy. Mild L2-L3 facet arthropathy. Soft tissues: Overlying bowel gas pattern is normal. No suspicious soft tissue calcifications. IMPRESSION: 1. Multilevel degenerative disc disease. 2. Multilevel facet hypertrophy. 3. No fracture. No acute osseous lesion. If there is continued clinical concern for pathology, then M RI should be considered for further evaluation. Reviewed by: Anna Mejia MD, PhD on 01/03/2022 12:40 PM PST Approved by: Anna Mejia MD, PhD on 01/03/2022 12:40 PM PST Station ID: [id number]
== END 2022-01-03 07:20 | disposition home or self-care (01) ==
LOC: DI.N 07:19
PROVIDERS: ATTEND Nurse Practitioner
DX: M51.36 Other intervertebral disc degeneration, lumbar region (principal); M47.816 Spondylosis without myelopathy or radiculopathy, lumbar region; M47.817 Spondylosis without myelopathy or radiculopathy, lumbosacral region; M51.37 Other intervertebral disc degeneration, lumbosacral region